=== PATIENT | female | born 1995 | race Hispanic/Latino ===

== ENCOUNTER 2020-07-11 13:33 | Outpatient (CLI) | payer OTHER ==
--- NOTE | 2020-07-11 14:31 | ULT ---
OB ULTRASOUND: HISTORY: anatomy FINDINGS: A single live intrauterine gestation is seen with measurements corresponding to an estimated gestatio nal age of 20 weeks 5 daysand SHAYNA at 11/23/2020. The estimated weight measures 373 g or 13 ounces (70% by Hadlock criteria). biometry: BPD: 4.74 cm, 20 weeks 3 days HC: 17.64 cm, 20 weeks 1 day AC: 15.56 cm, 20 weeks 6 days FL: 3.46 cm, 21 weeks 0 days heart rate: 150bpm Placenta: Posterior Placenta previa: No EDNA: 12.6cm A three-vessel cord, cord insertion, kidneys, urinary bladder, stomach, 4 chambered heart, late ral ventricles, cerebellum, spine, lips/nose, upper and lower extremities are visualized. No definite anomalies are seen. IMPRESSION: Single live intrauterine gestation of 20 weeks 5 daysestimated gestational age and SHAYNA at 11/23/2020
== END 2020-07-11 13:34 | disposition home or self-care (01) ==
LOC: BICULT 13:33
PROVIDERS: ATTEND Family Medicine
DX: Z34.82 Encounter for supervision of other normal pregnancy, second trimester (principal); Z3A.20 20 weeks gestation of pregnancy
CPT/HCPCS: 76805

== ENCOUNTER 2020-10-20 19:12 | Inpatient (IN) | payer MEDICAID, OTHER, SELFPAY ==
[2020-10-20] MEDS: Lactated Ringer's 1,000 ML IV SCH (19:15)
[2020-10-20] MEDS ORDERED: Famotidine/PF 20 mg/2ml Vial SLOW IVP PRN (19:38)
[2020-10-20] MEDS ORDERED: Promethazine HCl 25 MG/ML VIAL IM PRN ×2 (19:38→21:14)
[2020-10-20] MEDS ORDERED: Ondansetron PF 4 MG/2 ML Vial IVP PRN ×3 (19:38→21:14)
[2020-10-20] MEDS ORDERED: Bicitra 30 ML UDCUP PO PRN (19:38)
[2020-10-20] MEDS ORDERED: hydrALAZINE 20 MG/ML VIAL SLOW IVP PRN ×4 (19:38→21:39)
[2020-10-20] MEDS ORDERED: CEFAZOLIN 2 GM in Premix Bag 1 BAG IVPB SCH (19:45)
[2020-10-20] MEDS ORDERED: Lactated Ringer's 1,000 ML IV SCH (19:45)
[2020-10-20] MEDS ORDERED: PROPOFOL 20 ML ONE (19:47)
[2020-10-20] MEDS ORDERED: Succinylcholine 200 MG/10 ml SYRINGE FS ONE (19:47)
[2020-10-20] MEDS ORDERED: Fentanyl 100 MCG/2 ML VIAL ONE (19:48)
[2020-10-20] MEDS ORDERED: Lidocaine 1% PF 5 ML VIAL ONE (19:48)
[2020-10-20] MEDS ORDERED: Oxytocin 10 UNITS/ML VIAL ONE ×2 (19:59→20:29)
[2020-10-20] MEDS ORDERED: Ondansetron PF 4 MG/2 ML Vial ONE (20:03)
[2020-10-20 20:05] LABS: Hemoglobin 14.5 g/dL (12.0-16.0); Mean Corpuscular Hemoglobin 30.7 pg (27.0-31.0); Mean Platelet Volume 13.2 fL (7.4-10.4); Platelet Count 110 thou/uL (130-400); RBC Distribution Width 12.2 % (11.5-14.5); Red Blood Cell (RBC) Count 4.74 mill/uL (4.20-5.40); White Blood Cell (WBC) Count 12.3 thou/uL (4.8-10.8)
[2020-10-20 20:33] LABS: Syphilis Antibody Nonreactive (Nonreactive); Syphilis Antibody Index 0.02 S/CO (<1.00 Non-Reactive)
[2020-10-20] MEDS ORDERED: HYDROcodone/Acetaminophen 5/325 mg Tablet PO PRN ×2 (21:13)
[2020-10-20] MEDS ORDERED: Lanolin Ointment 7 GM TUBE TOP PRN (21:13)
[2020-10-20] MEDS ORDERED: Calcium Gluconate 4.6 MEQ in Sodium Chloride 0.9% 100 ML IVPB PRN (21:13)
[2020-10-20] MEDS ORDERED: diphenhydrAMINE 25 MG CAP PO PRN ×2 (21:13→21:14)
[2020-10-20] MEDS ORDERED: Ondansetron HCl/PF 4 MG/2 ML Vial IVP PRN (21:14)
[2020-10-20] MEDS ORDERED: L&D-Morphine 4 MG/ML VIAL SLOW IVP PRN (21:14)
[2020-10-20] MEDS ORDERED: HYDROmorphone 2 MG/ML VIAL SLOW IVP PRN (21:14)
[2020-10-20] MEDS ORDERED: Naloxone HCl 0.4 mg/ml Vial IV PRN (21:14)
[2020-10-20] MEDS ORDERED: fentaNYL Citrate/PF 2,000 MCG in Sodium Chloride 0.9% 60 ML IV PRN (21:14)
[2020-10-20] MEDS ORDERED: Zolpidem Tartrate 5 MG TAB PO PRN (21:14)
[2020-10-20] MEDS ORDERED: Meperidine HCl/PF 25 MG/ML VIAL SLOW IVP PRN (21:14)
[2020-10-20] MEDS ORDERED: diphenhydrAMINE 50 MG/ML VIAL IVP PRN (21:14)
[2020-10-20] MEDS ORDERED: diphenhydrAMINE 50 MG/ML VIAL IM PRN (21:14)
[2020-10-20] MEDS ORDERED: Communication Order-Pharmacy FS SCH (21:15)
[2020-10-20] MEDS ORDERED: Magnesium Sulfate 20 GM/WATER 500 ML BAG IVPB SCH (21:15)
[2020-10-20] MEDS: Magnesium Sulfate 20 gm/500 ml 20 GM/500 ML BAG IVPB SCH (21:40)
[2020-10-20] MEDS ORDERED: NIFEdipine XL 30 MG TAB PO SCH (21:45)
[2020-10-20 21:51] LABS: Amphetamine Not Detected (NotDetected); Barbiturates Screen Not Detected (NotDetected); Benzodiazepine Screen Not Detected (NotDetected); Cocaine Metabolite Screen Not Detected (NotDetected); Medtox Control Line Valid? VALID (VALID); Medtox Reader # READER 4; Methadone Not Detected (NotDetected); Methamphetamine Not Detected (NotDetected); Opiate Screen Not Detected (NotDetected); Oxycodone Screen Not Detected (NotDetected); Phencyclidine (PCP) Not Detected (NotDetected); THC/Cannabinoid Screen Not Detected (NotDetected); Tricyclic Screen Not Detected (NotDetected)
[2020-10-20 21:52] LABS: ALT (SGPT) 574 U/L (8-55); AST (SGOT) 547 U/L (5-34); Alkaline Phosphatase 353 U/L (40-110); Anion Gap 17 mmol/L (10-20); BUN (Urea Nitrogen) 18 mg/dL (7.0-18.7); Bilirubin, Total 0.7 mg/dL (0.2-1.2); Calc. Creatinine Clearance 0 mL/min (70-130); Calcium 8.4 mg/dL (7.8-10.44); Carbon Dioxide 17 mmol/L (22-29); Chloride 107 mmol/L (98-107); Glucose 105 mg/dL (70-105); Potassium 6.3 mmol/L (3.5-5.1); Sodium 135 mmol/L (136-145)
[2020-10-20 22:08] LABS: Creatinine, Urine 231.33 mg/dL (47-110)
[2020-10-20 23:20] LABS: HBSAg Index 0.14 S/CO (0-0.99); Hep B Surf Ag Non-Reactive S/CO (NonReactive)
[2020-10-21 01:02] LABS: INR-International Normal Ratio 0.9; PTT 26.2 sec (22.9-36.1); Prothrombin Time 12.3 sec (12.0-14.7)
[2020-10-21 01:11] LABS: Anion Gap 18 mmol/L (10-20); BUN (Urea Nitrogen) 19 mg/dL (7.0-18.7); Calc. Creatinine Clearance 0 mL/min (70-130); Calcium 8.2 mg/dL (7.8-10.44); Carbon Dioxide 17 mmol/L (22-29); Chloride 106 mmol/L (98-107); Glucose 113 mg/dL (70-105); Potassium 4.2 mmol/L (3.5-5.1); Sodium 137 mmol/L (136-145); Uric Acid 8.9 mg/dL (2.6-6.0)
--- NOTE | 2020-10-21 02:39 | OP ---
DATE OF PROCEDURE: 10/20/2020 PRIMARY OB: Dr. Fabio Moore. PREOPERATIVE DIAGNOSES: 1. Intrauterine at 36 weeks and 6 days. 2. Acute abdominal pain. 3. Severe range blood pressures. 4. Concerns for abruption. POSTOPERATIVE DIAGNOSES: 1. Intrauterine at 36 weeks and 6 days. 2. Acute abdominal pain. 3. Severe range blood pressures. 4. Concerns for abruption. PROCEDURE PERFORMED: Repeat lower transverse section. EMPLOYEE BENEFITS ATTORNEY: Dr. Prado. QUANTITATIVE BLOOD LOSS: 330 mL. FINDINGS: Male delivered on 10/20/2020 at 2000 hours by repeat at 36 weeks and 6 days. Apgars were 8 and 9. weight is 2295 g. Other findings; placenta uniformly appeared black at time of delivery. COMPLICATIONS: None. COUNTS: Correct. INDICATIONS: The patient is a 25-year-old G2, P1 female, presenting to Labor and Delivery at 36 weeks and 6 days with acute onset abdominal pain for several hours. The patient reports that this pain is persistent in between contractions. She does report a history of previous and headaches. She denies any complications with this up to this point and in fact reports that this morning when she woke up and throughout the day, she is feeling fine without any pain. Upon arrival, blood pressures were in the upper 190s and 200 systolic. Upon physical exam, her abdomen was exquisitely tender and given the entire picture, there was concerns that the patient was abrupting and was taken back for emergency repeat . DESCRIPTION OF PROCEDURE: The patient was placed under general anesthesia. She was prepared and draped in the normal sterile fashion. A transverse skin incision was made and carried down to the level of fascia. The fascia was excised and rectus muscles were dissected off superiorly and inferiorly. The peritoneum was then entered into bluntly and extended bluntly. The Jonathan O retractor was then placed and a transverse incision was made in the lower uterine segment delivering a fetus in vertex presentation to a sterile field. Cord was clamped and cut and infant was sent to the waiting attendance. Placenta delivered spontaneously thereafter, appearing very dark, nearly black uniformly with what appears to be a significant amount of clot in between in the body of the placenta, very little bleeding was noted. Uterus was then closed with #1 Monocryl in a running locked fashion followed by a second imbricating suture. Good hemostasis was noted and the uterus was returned back to the abdomen. The peritoneum was closed with 2-0 chromic. The fascia was closed with 0 Vicryl in a running fashion. The subcutaneous fat was closed with 2-0 plain gut with interrupted suture and the skin was closed with 4-0 Monocryl in a running fashion. The patient was taken to recovery room in stable condition after extubation. Job ID: [id number] MTDD
[2020-10-21 04:23] LABS: SARS-CoV-2 MS2 Positive; SARS-CoV-2 N Gene Negative; SARS-CoV-2 S Gene Negative; SARS-CoV-2 by NAA Not Detected (NotDetected); SARS-CoV-2 orf1ab Negative
[2020-10-21] MEDS: Ibuprofen 800 MG TAB PO SCH ×3 (05:52→21:53)
[2020-10-21] MEDS: Magnesium Sulfate 20 gm/500 ml 20 GM/500 ML BAG IVPB SCH ×2 (05:53→16:23)
[2020-10-21 08:01] LABS: ALT (SGPT) 412 U/L (8-55); AST (SGOT) 590 U/L (5-34); Albumin 2.4 g/dL (3.5-5.0); Alkaline Phosphatase 268 U/L (40-110); Anion Gap 14 mmol/L (10-20); BUN (Urea Nitrogen) 15 mg/dL (7.0-18.7); Bilirubin, Total 1.1 mg/dL (0.2-1.2); Calc. Creatinine Clearance 0 mL/min (70-130); Calcium 6.9 mg/dL (7.8-10.44); Carbon Dioxide 20 mmol/L (22-29); Chloride 104 mmol/L (98-107); Globulin 2.8 g/dL (2.4-3.5); Glucose 99 mg/dL (70-105); Potassium 4.4 mmol/L (3.5-5.1); Protein, Total 5.2 g/dL (6.0-8.3); Sodium 134 mmol/L (136-145)
--- NOTE | 2020-10-21 08:27 | PRG ---
DATE OF SERVICE: 10/21/2020 SUBJECTIVE: The patient is postoperative day 1, status post repeat for concerns of impending abruption in the setting of severe range blood pressures. The patient was subsequently diagnosed with preeclampsia with severe features, elevated LFTs in the 500s, platelets down to 110, creatinine of 1.07. Postoperatively, the patient has required multiple doses of hydralazine and was placed on Procardia XL 30 mg last night. Since then, her blood pressures have been in the 120s to 130s primarily. This morning, she is complaining of feeling quite dizzy. She denies any uncontrolled pain and is being adequately treated with her MARINE FITTER pump. OBJECTIVE: VITAL SIGNS: Her most recent vitals, blood pressure is 125/71, heart rate of 76, respiratory rate of 18. EXTREMITIES: DTRs present. LABORATORY DATA: CMP, magnesium level are pending this morning as well as postoperative H and H. ASSESSMENT AND PLAN: The patient is a 25-year-old female, postoperative day 1, status post repeat section at 36 weeks and 5 days, complicated by preeclampsia with severe features. Blood pressures appear stable with Procardia 30 mg XL daily at this time. We will work today to transition her from her MARINE FITTER to an oral pain medications. Magnesium until tonight. Labs are pending for the oncoming physician to review, Dr. Neville. Job ID: [id number]
[2020-10-21] MEDS ORDERED: Adacel (T-DAP) 0.5 ML SYRINGE IM ONE (09:00)
[2020-10-21] MEDS ORDERED: NIFEdipine XL 30 MG TAB PO SCH ×2 (09:00→21:00)
[2020-10-21 09:05] LABS: #Lymphocytes 2.4 thou/uL (1.20-3.40); #Monocytes 0.9 thou/uL (0.11-0.59); #Neutrophils 8.9 thou/uL (1.40-6.50); %Basophils 0.2 % (0.0-1.0); %Eosinophils 0.3 % (0.0-10.0); %Lymphocytes 19.4 % (21.0-51.0); %Monocytes 7.7 % (0.0-10.0); %Neutrophils 72.5 % (42.0-75.0); Mean Corpuscular HGB CONC 34.4 g/dL (32.0-36.0); Mean Corpuscular Hemoglobin 30.9 pg (27.0-31.0); Mean Corpuscular Volume 89.8 fL (78.0-98.0); Mean Platelet Volume 12.1 fL (7.4-10.4); Platelet Count 44 thou/uL (130-400); RBC Distribution Width 12.5 % (11.5-14.5); Red Blood Cell (RBC) Count 4.21 mill/uL (4.20-5.40); White Blood Cell (WBC) Count 12.3 thou/uL (4.8-10.8)
--- NOTE | 2020-10-21 09:07 | PRG ---
DATE OF SERVICE: 10/21/2020 TIME OF EVALUATION: 0815 hours. LOCATION: [facility] bed 6. about 12 hours or so. DIAGNOSES: 1. , status post repeat section. 2. Status post suspected placental abruption. 3. Suspected HELLP syndrome. This is a patient of Dr. Moore with the ACADEMIC DEPARTMENT CHAIR Team covering. SUBJECTIVE: The patient is alert and oriented with no new concerns. OBJECTIVE: I evaluated the patient at bedside and found her blood pressure to be 116/70, respirations were unlabored, and there was no active vaginal bleeding. I examined the patient's abdomen and the surgical dressing is in place and it is not blood soaked. It is in Pfannenstiel style. There is no vaginal bleeding at this time. LABORATORY DATA: Her platelets were 110 and then repeat platelets this morning were 49. I have ordered a repeat platelet check. Her creatinine at last check was 1.07. Currently her Procardia is 30 mg XL one p.o. b.i.d. I have also ordered a PT and PTT as of 10/21 at 0815 hours. ASSESSMENT: This is a patient who is status post repeat section, her first section was 7 years ago, also complicated by hypertension by her report. She underwent repeat section for suspected abruption clinically by Dr. Horn. She is stable now, although she has liver function tests in the 500s, and low platelets, which along with her hypertension, favor a diagnosis of HELLP syndrome. PLAN: 1. I have ordered recheck of platelets and PT and PTT as described above. 2. I have discussed the case with Kimberley, the patient's nurse. 3. If the patient's platelets fall under 20, we may consider giving her platelets to prevent spontaneous bleeding in the postop state. 4. Platelets are desired over 50 when they are preop. Because she is now postop, and no evidence of active clinical bleeding, we will default to the 20 cut off for platelet transfusion if necessary. I have discussed this with the patient and her family member in the room. 5. Continue her mag sulfate for now. Job ID: [id number]
[2020-10-21 09:08] LABS: INR-International Normal Ratio 0.9; PTT 28.9 sec (22.9-36.1); Prothrombin Time 12.2 sec (12.0-14.7)
--- NOTE | 2020-10-21 09:33 | PDOC.BPN ---
- Brief Progress Note Lab Check: Platelets this AM basically stable at 44 from 49 PT and PTT are normal Hct still 37
--- NOTE | 2020-10-21 16:16 | PDOC.BPN ---
- Brief Progress Note PPD 1 At bedside now S.Pt well. No new complaints. O. 115/63 pulse 73 A/P: Severe Preeclampsia on mag...doing well. On procardia 30mg po QHS...will hold for now. I discussed this wth her
[2020-10-21] MEDS: Prenatal Vitamin 1 TAB PO SCH (17:39)
--- NOTE | 2020-10-21 19:34 | PDOC.PP ---
Post Progress Note Post Day #: 1 Subjective: Doing well PO intake tolerated: yes Flatus: yes Ambulation: yes Vital Signs (12 hours) Temp 10/21/20 17:00 98.2 F BPs reviewed, highest recent BP was systolic of 144. (144/85) - Physical Examination General: NAD Respiratory: non-labored breathing Abdominal: no distention, appropriately TTP Extremities: negative homans (B) Neurological: no gross focal deficits Psychiatric: A&Ox3, normal affect Result Diagrams: 10/21/20 08:40 10/21/20 07:14 Additional Labs: Post Labs Hep Bs Antigen Non-Reactive S/CO (NonReactive) 10/20/20 19:50 Blood Type O POSITIVE 10/20/20 21:24 (1) Delivery by section Code(s): [id number] - Status: Acute (2) HELLP (hemolytic anemia/elev liver enzymes/low platelets in ) Code(s): O14.20 - HELLP SYNDROME (HELLP), UNSPECIFIED TRIMESTER Status: Acute - Assessment/Plan Plan: OK to stop IV mag as 24 hrs. Floor transfer. Recheck CBC at 0300 LFTs may take a while to return to normal
--- NOTE | 2020-10-21 20:38 | PDOC.BPN ---
- Brief Progress Note Added a CMP to AM run
[2020-10-21] MEDS ORDERED: FLU VACC QS2020-21(6MOS UP)/PF 60 MCG/0.5 ML SYRINGE IM ONE (21:00)
[2020-10-21 21:35] LABS: ALT (SGPT) 314 U/L (8-55); AST (SGOT) 275 U/L (5-34); Albumin 2.4 g/dL (3.5-5.0); Alkaline Phosphatase 257 U/L (40-110); Anion Gap 14 mmol/L (10-20); BUN (Urea Nitrogen) 14 mg/dL (7.0-18.7); Calc. Creatinine Clearance 0 mL/min (70-130); Calcium 6.4 mg/dL (7.8-10.44); Carbon Dioxide 27 mmol/L (22-29); Chloride 99 mmol/L (98-107); Globulin 3.4 g/dL (2.4-3.5); Glucose 112 mg/dL (70-105); Potassium 4.5 mmol/L (3.5-5.1); Protein, Total 5.8 g/dL (6.0-8.3); Sodium 135 mmol/L (136-145)
[2020-10-21] MEDS: Lactated Ringer's 1,000 ML IV SCH (22:20)
[2020-10-22] MEDS ORDERED: diphenhydrAMINE 25 MG CAP PO PRN (00:42)
[2020-10-22] MEDS: Ibuprofen 800 MG TAB PO SCH ×3 (05:45→22:30)
--- NOTE | 2020-10-22 05:53 | PDOC.PP ---
Post Progress Note Post Day #: 2 Subjective: Doing well, no PIH symptoms (no HICKS, no visual issues, no RUQ pain). States slight skin itching. PO intake tolerated: yes Flatus: yes Ambulation: yes Vital Signs (12 hours) Temp Pulse Resp BP 10/22/20 00:35 99.2 F 69 15 141/82 H 10/21/20 21:20 99.2 F 76 17 132/78 BPs are Q4 anfd I reviewed themn with the RN this AM..highest systolic was low 1402 - Physical Examination General: NAD Respiratory: non-labored breathing Abdominal: no distention, appropriately TTP Extremities: negative homans (B) Skin: CS incision dry & intact (silver dressing in place (pfannenstiel)...sutured incision per note) Neurological: no gross focal deficits Psychiatric: A&Ox3, normal affect Result Diagrams: 10/21/20 08:40 10/21/20 21:02 Additional Labs: Post Labs Hep Bs Antigen Non-Reactive S/CO (NonReactive) 10/20/20 19:50 Blood Type O POSITIVE 10/20/20 21:24 (1) Delivery by section Code(s): [id number] - Status: Acute (2) HELLP (hemolytic anemia/elev liver enzymes/low platelets in ) Code(s): O14.20 - HELLP SYNDROME (HELLP), UNSPECIFIED TRIMESTER Status: Acute - Assessment/Plan POD2 now off magsulfate. BPs are OK with only mild elevatio noted in low 140s. Not on procardia now. Plan: 1. Follow BPs 2. Repeat labs ordered for this AM...pending 3. Benadryl for itching...no rashes noted 4. Q4 hr BPs
[2020-10-22 06:20] LABS: #Eosinphils 0.1 thou/uL (0.0-0.7); #Lymphocytes 2.6 thou/uL (1.20-3.40); #Monocytes 0.7 thou/uL (0.11-0.59); %Basophils 0.3 % (0.0-1.0); %Eosinophils 0.7 % (0.0-10.0); %Lymphocytes 22.4 % (21.0-51.0); %Monocytes 6.1 % (0.0-10.0); %Neutrophils 70.5 % (42.0-75.0); Hemoglobin 12.1 g/dL (12.0-16.0); Mean Corpuscular HGB CONC 34.4 g/dL (32.0-36.0); Mean Corpuscular Hemoglobin 31.3 pg (27.0-31.0); Mean Corpuscular Volume 90.9 fL (78.0-98.0); Mean Platelet Volume 12.2 fL (7.4-10.4); Platelet Count 34 thou/uL (130-400); RBC Distribution Width 12.5 % (11.5-14.5); Red Blood Cell (RBC) Count 3.87 mill/uL (4.20-5.40); White Blood Cell (WBC) Count 11.4 thou/uL (4.8-10.8)
--- NOTE | 2020-10-22 07:24 | PDOC.BPN ---
- Brief Progress Note LAB check: AM labs with HCT 35 from 37. PLATLETS are now 34 from 49. This is consistent with decrease from HELLP as per ACOG. I have ordered a recheck for 1600 and will notify the ray WHITMAN at 0800 check out. AST 275 and ALT 314...improving
[2020-10-22 09:38] LABS: Albumin 2.3 g/dL (3.5-5.0); Calcium 6.7 mg/dL (7.8-10.44); Chloride 102 mmol/L (98-107); Globulin 3.3 g/dL (2.4-3.5); Glucose 87 mg/dL (70-105); Potassium 4.4 mmol/L (3.5-5.1); Protein, Total 5.6 g/dL (6.0-8.3); Sodium 135 mmol/L (136-145)
[2020-10-22] MEDS ORDERED: HYDROcodone/Acetaminophen 5/325 mg Tablet PO PRN (09:38)
[2020-10-22] MEDS: Prenatal Vitamin 1 TAB PO SCH (10:02)
[2020-10-22] MEDS: HYDROcodone/Acetaminophen 5/325 mg Tablet PO PRN ×3 (10:02→14:08)
[2020-10-22 10:38] LABS: ALT (SGPT) 260 U/L (8-55); AST (SGOT) 175 U/L (5-34); Alkaline Phosphatase 235 U/L (40-110); Anion Gap 15 mmol/L (10-20); BUN (Urea Nitrogen) 15 mg/dL (7.0-18.7); Bilirubin, Total 1.1 mg/dL (0.2-1.2); Calc. Creatinine Clearance 0 mL/min (70-130); Carbon Dioxide 24 mmol/L (22-29)
[2020-10-22 16:36] LABS: Platelet Count 32 thou/uL (130-400)
[2020-10-23] MEDS: HYDROcodone/Acetaminophen 5/325 mg Tablet PO PRN ×3 (00:35→13:09)
[2020-10-23] MEDS: Ibuprofen 800 MG TAB PO SCH ×3 (05:24→20:47)
--- NOTE | 2020-10-23 08:45 | PRG ---
DATE OF SERVICE: 10/23/2020 SUBJECTIVE: The patient is postop day #3, status post a repeat lower transverse section complicated by severe preeclampsia and HELLP syndrome. The patient reports that she is having some pain at her incision site, but has no other complaints. Her bleeding has decreased. She is tolerating a diet and ambulating. OBJECTIVE: VITAL SIGNS: This morning show a blood pressure 157/92, temperature 98.1, pulse of 67, respiratory rate of 20, saturating 98% on room air. Blood pressures over the last 24 hours have been primarily in the 130s to 140s. GENERAL: The patient appears to be in no acute distress. She is alert, oriented, cooperative, and pleasant to interact with. HEENT: Head; normocephalic and atraumatic. Fundus is firm. Incision is clean, dry, and intact and bandaged. EXTREMITIES: Nontender, nonedematous. LABORATORY DATA: Platelets are being followed and yesterday morning, they were 32,000, stable from 34,000 earlier that morning and 44,000 a day prior. Labs today are pending. LFTs are trending down significantly. ASSESSMENT AND PLAN: The patient is a 25-year-old female, postop day 3, status post repeat lower transverse section for abruption complicated by severe preeclampsia and HELLP. The patient is on Procardia XL 30 mg daily that was inadvertently discontinued, but is starting again today. Platelets are at a critical level and we will continue to follow until we need to intervene or they begin spontaneously improving before considering discharge home. Job ID: [id number]
[2020-10-23] MEDS: Prenatal Vitamin 1 TAB PO SCH (08:53)
[2020-10-23] MEDS: NIFEdipine XL 30 MG TAB PO SCH (08:53)
[2020-10-23 12:38] LABS: #Basophils 0.1 thou/uL (0.0-0.2); #Eosinphils 0.1 thou/uL (0.0-0.7); #Lymphocytes 2.7 thou/uL (1.20-3.40); #Monocytes 0.7 thou/uL (0.11-0.59); #Neutrophils 8.8 thou/uL (1.40-6.50); %Basophils 0.9 % (0.0-1.0); %Eosinophils 0.6 % (0.0-10.0); %Lymphocytes 21.6 % (21.0-51.0); %Monocytes 5.8 % (0.0-10.0); %Neutrophils 71.1 % (42.0-75.0); Hemoglobin 11.6 g/dL (12.0-16.0); MDiff Complete? YES; Mean Corpuscular HGB CONC 32.4 g/dL (32.0-36.0); Mean Corpuscular Hemoglobin 29.6 pg (27.0-31.0); Mean Corpuscular Volume 91.5 fL (78.0-98.0); Mean Platelet Volume 12.9 fL (7.4-10.4); Platelet Count 47 thou/uL (130-400); Platelet Morphology Comment Appears Decreased; Polychromasia SLIGHT = 2-3 cells (100X) (0-2/hpf); RBC Distribution Width 12.5 % (11.5-14.5); Red Blood Cell (RBC) Count 3.93 mill/uL (4.20-5.40); White Blood Cell (WBC) Count 12.4 thou/uL (4.8-10.8)
[2020-10-24] MEDS: Ibuprofen 800 MG TAB PO SCH (05:11)
[2020-10-24 07:05] LABS: Hemoglobin 11.6 g/dL (12.0-16.0); Mean Corpuscular HGB CONC 33.7 g/dL (32.0-36.0); Mean Corpuscular Hemoglobin 30.8 pg (27.0-31.0); Mean Corpuscular Volume 91.5 fL (78.0-98.0); Platelet Count 70 thou/uL (130-400); RBC Distribution Width 12.4 % (11.5-14.5); Red Blood Cell (RBC) Count 3.78 mill/uL (4.20-5.40); White Blood Cell (WBC) Count 10.6 thou/uL (4.8-10.8)
--- NOTE | 2020-10-24 07:40 | PDOC.PP ---
Post Progress Note Post Day #: 4 Subjective: Doing well, no complaints. Would like to go home today. PO intake tolerated: yes Flatus: yes Ambulation: yes Vital Signs (12 hours) Temp Pulse Resp BP BP Pulse Ox 10/24/20 05:10 134/76 10/24/20 00:25 130/66 10/23/20 20:50 98.4 F 65 18 135/67 96 - Physical Examination General: NAD Respiratory: non-labored breathing Abdominal: lochia (normal), no distention, appropriately TTP Fundus firm & at: below umbilicus Skin: CS incision dry & intact, no rash Neurological: no gross focal deficits Psychiatric: A&Ox3, normal affect Result Diagrams: 10/24/20 06:34 10/22/20 06:25 Additional Labs: Post Labs Hep Bs Antigen Non-Reactive S/CO (NonReactive) 10/20/20 19:50 Blood Type O POSITIVE 10/20/20 21:24 (1) Delivery by section Code(s): [id number] - Status: Acute (2) HELLP (hemolytic anemia/elev liver enzymes/low platelets in ) Code(s): O14.20 - HELLP SYNDROME (HELLP), UNSPECIFIED TRIMESTER Status: Acute (3) Severe pre-eclampsia Code(s): O14.10 - SEVERE PRE-ECLAMPSIA, UNSPECIFIED TRIMESTER Status: Acute - Assessment/Plan Platelets now up to 70,000 from joce of 32,000. Asymptomatic. BPs controlled with Procardia XL 30mg. Anticipate d/c today with follow up in 3 days for BP check.
[2020-10-24 08:45] VITALS: BP 150/87; TEMP 98.5
[2020-10-24] MEDS: NIFEdipine XL 30 MG TAB PO SCH (09:16)
[2020-10-24] MEDS: Prenatal Vitamin 1 TAB PO SCH (09:16)
[2020-10-24] MEDS: HYDROcodone/Acetaminophen 5/325 mg Tablet PO PRN (09:52)
== END 2020-10-24 11:38 | disposition home or self-care (01) | DRG 788 ==
LOC: L&D/OP 19:12 → L&D 20:22 → 3SW 10-21 21:40
PROVIDERS: ADMIT Family Medicine; ATTEND Family Medicine
PROC: 10D00Z1 Extraction of Products of Conception, Low, Open Approach (ICD-10-PCS; principal; 2020-10-20)
DX: O45.93 Premature separation of placenta, unspecified, third trimester (principal); O34.219 Maternal care for unspecified type scar from previous cesarean delivery; O14.24 HELLP syndrome, complicating childbirth; Z20.828 Contact with and (suspected) exposure to other viral communicable diseases; Z3A.36 36 weeks gestation of pregnancy; Z37.0 Single live birth
CPT/HCPCS: 36415; 51702; 80048; 80053; 80306; 82570; 83615; 83735; 84156; 84550; 85025; 85027; 85384; 85610; 85730; 86780; 86850; 86900; 86901; 87340; 87635; 88307; 99285; J0360; J0690; J2405; J2704; J3010; J3475; J3490; Q0163; U0003